=== PATIENT | female | born 1965 | race Caucasian/White ===

== ENCOUNTER 2018-04-30 17:39 | Emergency (ER) | payer MEDICAID ==
[~2018-04-30] VITALS: Ht 162.6 cm; Wt 58.0 kg
[2018-04-30] MEDS ORDERED: KETOROLAC 60MG/2ML VIAL IM ONE (21:30)
[2018-04-30 21:59] VITALS: BP 141/75
== END 2018-04-30 22:00 | disposition home or self-care (01) ==
LOC: ER 17:39
DX: M25.511 Pain in right shoulder (principal); E11.9 Type 2 diabetes mellitus without complications; F17.200 Nicotine dependence, unspecified, uncomplicated
CPT/HCPCS: 73030; 96372; 99284; J1885; Z7610; A4565